=== PATIENT | male | born 1960 | race Caucasian/White ===

== ENCOUNTER → 2020-03-03 | Outpatient (CLI) | payer OTHER ==
--- NOTE | 2020-03-03 13:30 | Diagnostic Imaging Report ---
INDICATION: Bilateral knee pain. TIME OF EXAM: 11:24 AM 2 views of each knee were obtained. Joint spaces are well-maintained bilaterally. No joint space narrowing is seen. Articular surfaces are smooth. No fracture, dislocation or effusion is detected. IMPRESSION: No acute bony abnormality is detected. Dictated by: Dictated on workstation # [id number]
== END ==
LOC: RAD 10:58
PROVIDERS: ATTEND Family Medicine
DX: M25.562 Pain in left knee (principal); M25.561 Pain in right knee

== ENCOUNTER → 2020-05-12 | Outpatient (CLI) | payer OTHER ==
--- NOTE | 2020-05-12 14:17 | Diagnostic Imaging Report ---
INDICATION: Bilateral shoulder pain. Glenohumeral and acromioclavicular alignment is normal bilaterally. There are some hypertrophic degenerative changes involving the acromioclavicular joints bilaterally. Acromiohumeral space is normal bilaterally. No fracture or dislocation is seen. IMPRESSION: Bilateral degenerative changes. No acute bony abnormality is detected. Dictated by: Dictated on workstation # [id number]
--- NOTE | 2020-05-12 14:18 | Diagnostic Imaging Report ---
INDICATION: Low back pain. TIME OF EXAM: 1:51 PM Frontal and lateral views lumbar spine were obtained. Curvature is normal. There is minimal retrolisthesis of L2 on L3. Vertebral body heights are maintained. No acute compression fractures identified. There is generalized lumbar spondylosis with variable disc space narrowing and marginal spurring. There are atherosclerotic calcifications within the abdominal aorta. IMPRESSION: Lumbar spondylosis. No acute bony abnormality is detected. Dictated by: Dictated on workstation # [id number]
--- NOTE | 2020-05-12 14:40 | Diagnostic Imaging Report ---
Indication: Bilateral hip pain. Time of exam: 1:48 PM AP view of the pelvis and multiple views bilateral hips were obtained. Femoral acetabular alignment is normal bilaterally. Joint spaces are fairly well maintained. Both femoral heads and necks are intact. Rami are intact. No fractures are seen. IMPRESSION: No acute bony abnormality is detected. Dictated by: Dictated on workstation # [id number]
== END ==
LOC: RAD 13:30
PROVIDERS: ATTEND Anesthesiology Pain Medicine
DX: Z02.71 Encounter for disability determination (principal); M47.816 Spondylosis without myelopathy or radiculopathy, lumbar region; M19.012 Primary osteoarthritis, left shoulder; M19.011 Primary osteoarthritis, right shoulder
CPT/HCPCS: 72100; 73523